=== PATIENT | male | born 1965 | race Native Hawaiian/Other Pacific Islander ===

== ENCOUNTER 2020-05-18 08:42 | Emergency (ER) | payer MEDICAID, MEDICARE ==
[2020-05-18] MEDS ORDERED: hydrALAZINE 20 MG/1 ML INJ IV ONE (08:45)
--- NOTE | 2020-05-18 09:10 | Cat Scan Report ---
CT head without contrast INDICATION : Code stroke. TECHNIQUE: Axial imaging performed from the skull apex through the skull base without the use of con trast. All CT scans at this location are performed using CT dose reduction for ALARA by means of aut omated exposure control. COMPARISON: None FINDINGS: Parenchyma: No acute intracranial hemorrhage or parenchymal abnormality. Ventricles: Ventricles are normal in size and appear symmetric. Soft tissues: Soft tissues including the orbits appear normal. Bones: No acute osseous abnormality. Sinuses: Minimal thickening right maxillary sinus. IMPRESSION: No acute abnormality. CODE STROKE: Time of Communication (COMBINATION WINDOW INSTALLER/CDT): 8 8 2:00 AM Licensed Practitioner Receiving Report: Dr. Kimble. Signer Name: Carlos Tinoco MD Signed: 05/18/2020 9:05 AM Workstation Name: [id number]
[2020-05-18] MEDS ORDERED: METOCLOPRAMIDE 10 MG/2 ML INJ IV ONE (09:28)
[2020-05-18] MEDS ORDERED: BUTALB/ACETAMINOPHEN/CAFFEINE TAB PO ONE (09:28)
[2020-05-18] MEDS ORDERED: diphenhydrAMINE 50 MG/ML VIAL IV ONE (09:28)
--- NOTE | 2020-05-18 09:29 | XRay Report ---
CHEST 1 VIEW 05/18/2020 8:55 AM INDICATION / CLINICAL INFORMATION: code stroke. COMPARISON: Report from radiograph dated 12/29/2016. Images are not available for comparison. FINDINGS: SUPPORT DEVICES: None. HEART / MEDIASTINUM: No significant abnormality. LUNGS / PLEURA: No significant pulmonary or pleural abnormality. No pneumothorax. ADDITIONAL FINDINGS: No significant additional findings. IMPRESSION: 1. No acute findings. Signer Name: Jw Jama MD Signed: 05/18/2020 9:25 AM Workstation Name: [id number]
[2020-05-18 09:38] LABS: Hematocrit 46.1 % (35.5-45.6); Hemoglobin 15.3 gm/dl (11.8-15.2); Mean Corpuscular HGB Conc 33 % (32-34); Mean Corpuscular Volume 93 fl (84-94); Red Blood Count 4.95 M/mm3 (3.65-5.03); Red Cell Distribution Width 13.8 % (13.2-15.2)
[2020-05-18 09:54] LABS: Partial Thromboplastin Time 31.8 Sec. (24.2-36.6); Thrombin Time 16.6 Sec. (15.1-19.6)
[2020-05-18] MEDS ORDERED: ONDANSETRON 4 MG/2 ML INJ IV ONE (09:55)
[2020-05-18] MEDS ORDERED: BUTORPHANOL 2 MG/1 ML INJ IV NR (09:56)
[2020-05-18 09:59] LABS: Creatine Kinase MB 5.1 ng/mL (0.0-4.0); Platelet Count 253 K/mm3 (140-440)
--- NOTE | 2020-05-18 10:00 | History and Physical Report ---
Medications and Allergies Allergies Allergy/AdvReac Type Severity Reaction Status Date / Time aspirin Allergy Itching Verified 07/03/13 18:43 Iodinated Contrast Media Allergy Shortness Verified 03/11/13 17:05 [Iodinated Contrast Media - of Breath IV Dye] ketorolac tromethamine Allergy Itching Verified 03/11/13 17:05 [From Toradol] NSAIDS (Non-Steroidal Allergy Itching Verified 03/11/13 17:05 Anti-Inflamma prochlorperazine edisylate Allergy Itching Verified 03/11/13 17:05 [From Compazine] prochlorperazine maleate Allergy Itching Verified 03/11/13 17:05 [From Compazine] Sulfa (Sulfonamide Allergy Itching Verified 03/11/13 17:05 Antibiotics) sumatriptan [From Imitrex] Allergy Itching Verified 03/11/13 17:05 sumatriptan succinate Allergy Itching Verified 03/11/13 17:05 [From Imitrex] tramadol HCl [From Ultram] Allergy Itching Verified 03/11/13 17:05 Home Medications Medication Instructions Recorded Confirmed Last Taken Type ALBUTEROL NEB's [Proventil 0.083% 2.5 mg IH TID PRN 07/03/13 12/31/16 12/30/16 History NEBS] cloNIDine [Catapres] 0.3 mg PO BID #60 tablet 07/07/13 12/31/16 12/30/16 Rx lisinopriL [Zestril TAB] 20 mg PO BID #60 tablet 07/07/13 12/31/16 12/30/16 Rx LORazepam [Ativan] 1 mg PO BID 12/31/16 12/31/16 12/30/16 History Mirtazapine [Remeron] 30 mg PO QHS 12/31/16 12/31/16 12/30/16 History Morphine ER [Ms Contin ER] 30 mg PO BID 12/31/16 12/31/16 12/30/16 History Oxycodone HCl [Roxicodone] 1 tab PO Q4HR 12/31/16 12/31/16 12/30/16 22:00 History 1 tab Active Meds: Active Medications Ondansetron HCl (Ondansetron 4 Mg/2 Ml Inj) 4 mg IV ONCE ONE Stop: 05/18/20 09:56 Assessment and Plan [facility] Consult Note # Demographics Consult Type: Acute Stroke Level 2 (4.5-24 hrs) Patient Location: Emergency Room First Name: Smooth Last Name: Rohan Date of : 1965 Age: 55 Gender: Male Time of Initial Page ( Time): 05/18/2020, 08:47 Time of Return Call ( Time): 05/18/2020, 08:47 # HPI History: 55 yo man with headache starting yesterday then onset of slurred speech and right-sided weakness startting at 03:45. History of migraines in the past associated neurological symptoms of weakness. Current headache feels like his migraines. Last Known Normal: I have collected independent history specific to time last normal or last known well. We have collaborated with the provider and at this time, we have the most current timeline with the information that is available., [id number] Duration: constant # Scores Time of exam and NIHSS (): 05/18/2020, 09:12 Level of Consciousness 1a: [0] = Alert; keenly responsive LOC Questions 1b: [0] = Answers both questions correctly LOC Commands 1c: [0] = Performs both tasks correctly Best Gaze 2: [0] = Normal Visual 3: [0] = No visual loss Facial Palsy 4: [1] = Minor paralysis Motor Arm Left 5a: [0] = No drift Motor Arm Right 5b: [1] = Drift Motor Leg Left 6a: [0] = No drift Motor Leg Right 6b: [1] = Drift Limb Ataxia 7: [0] = Absent Sensory 8: [1] = [id number] sensory loss Best Language 9: [0] = No aphasia Dysarthria 10: [1] = [id number]-oddtrugu dysarthria Extinction and Inattention 11: [0] = No abnormality NIHSS Total: 5 # Exam SBP: 176 DBP: 108 # PMH-- Past Medical History: hypertension, Migraines, Asthma, Chronic pain Medications: Morphine, Lisinopril, Clonidine, Remeron, Roxicodone Allergies: IV contrast, NSAIDS, Toradol, Compazine, IV dye (hives) # Data Time Head CT personally read by me ( Time): 05/18/2020, 08:[address]: no bleed # Assessment Impression: Migraine (Complex), Stroke Mimic, Headache associated with right sided weakness and numbness. He has a history of complex migraines associated with neurological symptoms. Differential includes complex migraine vs stroke/TIA. Given timing of symptom onset he is not a candidate for IV tpa. Due to contrast allergy we were unable to get a stat CTA head and neck. # Plan Thrombolytic/Intervention: NOT IV Thrombolytic or IA Intervention Thrombolytic Exclusion: > 4.5 hours Intraarterial Exclusion: other (see below), Unable to get CTA Thrombolytic/Intraarterial Exclusion: IV thrombolytic and IA intervention considered but not recommended as this patient's symptoms are not clinically consistent with an assumed diagnosis of stroke Imaging: (urgency: STAT in ED): MRI Brain without contrast Therapy/Evaluation: NPO until swallow evaluation Other: I have discussed my recommendations with the referring provider Additional Recommendations: Treat migraine headache MRI brain to further rule out stroke Disposition: admit
[2020-05-18 10:01] LABS: Alanine Aminotransferase 13 units/L (7-56); Albumin 3.9 g/dL (3.9-5); BUN/Creatinine Ratio 12; Blood Urea Nitrogen 12 mg/dL (9-20); Calcium 10.2 mg/dL (8.4-10.2); Hemolysis Index 59
--- NOTE | 2020-05-18 10:08 | Emergency Department Report ---
ED General Adult HPI - General Chief complaint: Neuro Symptoms/Deficit Stated complaint: POSSIBLE STROKE Time Seen by Provider: 05/18/20 08:45 Source: patient Mode of arrival: Stretcher Limitations: No Limitations - History of Present Illness Initial comments: The patient presents to the emergency department via EMS as a code stroke. Patient states around 3 AM this morning he began to have slurred speech and difficulty using his right side. Patient also complains of a headache states he has a history of migraines and this feels very similar to prior migraines. Patient denies any chest pain, shortness breath, or headache. Patient does complain of chronic back pain and states he has not had morphine in 2 days due to being in [facility]. Not the worst headache of his life -: Sudden Location: head Severity scale (0 -10): 8 Quality: other (Throbbing) Consistency: constant Improves with: none Worsens with: none Associated Symptoms: denies other symptoms Treatments Prior to Arrival: none - Related Data Home Medications Medication Instructions Recorded Confirmed Last Taken ALBUTEROL NEB's [Proventil 0.083% 2.5 mg IH TID PRN 07/03/13 12/31/16 12/30/16 NEBS] LORazepam [Ativan] 1 mg PO BID 12/31/16 12/31/16 12/30/16 Mirtazapine [Remeron] 30 mg PO QHS 12/31/16 12/31/16 12/30/16 Morphine ER [Ms Contin ER] 30 mg PO BID 12/31/16 12/31/16 12/30/16 Oxycodone HCl [Roxicodone] 1 tab PO Q4HR 12/31/16 12/31/16 12/30/16 22:00 1 tab Previous Rx's Medication Instructions Recorded Last Taken Type cloNIDine [Catapres] 0.3 mg PO BID #60 tablet 07/07/13 12/30/16 Rx lisinopriL [Zestril TAB] 20 mg PO BID #60 tablet 07/07/13 12/30/16 Rx Allergies Allergy/AdvReac Type Severity Reaction Status Date / Time aspirin Allergy Itching Verified 07/03/13 18:43 Iodinated Contrast Media Allergy Shortness Verified 03/11/13 17:05 [Iodinated Contrast Media - of Breath IV Dye] ketorolac tromethamine Allergy Itching Verified 03/11/13 17:05 [From Toradol] NSAIDS (Non-Steroidal Allergy Itching Verified 03/11/13 17:05 Anti-Inflamma prochlorperazine edisylate Allergy Itching Verified 03/11/13 17:05 [From Compazine] prochlorperazine maleate Allergy Itching Verified 03/11/13 17:05 [From Compazine] Sulfa (Sulfonamide Allergy Itching Verified 03/11/13 17:05 Antibiotics) sumatriptan [From Imitrex] Allergy Itching Verified 03/11/13 17:05 sumatriptan succinate Allergy Itching Verified 03/11/13 17:05 [From Imitrex] tramadol HCl [From Ultram] Allergy Itching Verified 03/11/13 17:05 ED Review of Systems ROS: Stated complaint: POSSIBLE STROKE Other details as noted in HPI Comment: All other systems reviewed and negative Constitutional: denies: chills, fever Eyes: denies: eye pain, eye discharge, vision change ENT: denies: ear pain, throat pain Respiratory: denies: cough, shortness of breath, wheezing Cardiovascular: denies: chest pain, palpitations Endocrine: no symptoms reported Gastrointestinal: denies: abdominal pain, nausea, diarrhea Genitourinary: denies: urgency, dysuria Musculoskeletal: denies: back pain, joint swelling, arthralgia Skin: denies: rash, lesions Neurological: weakness (right side). denies: headache, paresthesias Psychiatric: denies: anxiety, depression Hematological/Lymphatic: denies: easy bleeding, easy bruising ED Past Medical Hx - Past Medical History Hx Hypertension: Yes Hx CVA: Yes (05/2015) Hx Congestive Heart Failure: No Hx Diabetes: No Hx Headaches / Migraines: Yes (cluster headaches) Hx Asthma: Yes Hx COPD: No Additional medical history: hx complex migraines with stroke type symptoms. chronic back pain. left side weakness from previous cva. Narcotic dependence - Surgical History Additional Surgical History: left hip replacement, pin in right shoulder and back surgery, testiclular surgery, abdominal surgery - Social History Smoking Status: Former Smoker - Medications Home Medications: Home Medications Medication Instructions Recorded Confirmed Last Taken Type ALBUTEROL NEB's [Proventil 0.083% 2.5 mg IH TID PRN 07/03/13 12/31/16 12/30/16 History NEBS] cloNIDine [Catapres] 0.3 mg PO BID #60 tablet 07/07/13 12/31/16 12/30/16 Rx lisinopriL [Zestril TAB] 20 mg PO BID #60 tablet 07/07/13 12/31/16 12/30/16 Rx LORazepam [Ativan] 1 mg PO BID 12/31/16 12/31/16 12/30/16 History Mirtazapine [Remeron] 30 mg PO QHS 12/31/16 12/31/16 12/30/16 History Morphine ER [Ms Contin ER] 30 mg PO BID 12/31/16 12/31/16 12/30/16 History Oxycodone HCl [Roxicodone] 1 tab PO Q4HR 12/31/16 12/31/16 12/30/16 22:00 History 1 tab ED Physical Exam - General Limitations: No Limitations General appearance: alert, in no apparent distress - Head Head exam: Present: atraumatic, normocephalic - Eye Eye exam: Present: normal appearance, PERRL, EOMI - ENT ENT exam: Present: mucous membranes moist - Neck Neck exam: Present: normal inspection - Respiratory Respiratory exam: Present: normal lung sounds bilaterally. Absent: respiratory distress - Cardiovascular Cardiovascular Exam: Present: regular rate, normal rhythm. Absent: systolic murmur, diastolic murmur, rubs, gallop - GI/Abdominal GI/Abdominal exam: Present: soft, normal bowel sounds. Absent: distended, tenderness - Rectal Rectal exam: Present: deferred - Extremities Exam Extremities exam: Present: normal inspection - Back Exam Back exam: Present: normal inspection - Neurological Exam Neurological exam: Present: alert, oriented X3, CN II-XII intact - Psychiatric Psychiatric exam: Present: normal affect, normal mood - Skin Skin exam: Present: warm, dry, intact, normal color. Absent: rash ED Course Vital Signs 05/18/20 09:45 Temperature 98.6 F Pulse Rate 89 Respiratory 18 Rate Blood Pressure 176/108 [Right] O2 Sat by Pulse 99 Oximetry ED Medical Decision Making - Lab Data Result diagrams: 05/18/20 09:30 05/18/20 09:30 Lab Results 05/18/20 05/18/20 05/18/20 Range/Units 09:30 09:30 09:30 WBC 15.4 H (4.5-11.0) K/mm3 RBC 4.95 (3.65-5.03) M/mm3 Hgb 15.3 H (11.8-15.2) gm/dl Hct 46.1 H (35.5-45.6) % MCV 93 (84-94) fl MCH 31 (28-32) pg MCHC 33 (32-34) % RDW 13.8 (13.2-15.2) % Plt Count 253 (140-440) K/mm3 Seg Neutrophils % Event Planner PT 13.1 (12.2-14.9) Sec. INR 1.00 (0.87-1.13) APTT 31.8 (24.2-36.6) Sec. Thrombin Time 16.6 (15.1-19.6) Sec. Sodium 133 L (137-145) mmol/L Potassium 4.9 (3.6-5.0) mmol/L Chloride 97.9 L (98-107) mmol/L Carbon Dioxide 23 (22-30) mmol/L Anion Gap 17 mmol/L BUN 12 (9-20) mg/dL Creatinine 1.0 (0.8-1.3) mg/dL Estimated GFR > 60 ml/min BUN/Creatinine Ratio 12 % Glucose 105 H (75-100) mg/dL Calcium 10.2 (8.4-10.2) mg/dL Total Bilirubin 0.90 (0.1-1.2) mg/dL AST 32 (5-40) units/L ALT 13 (7-56) units/L Alkaline Phosphatase 93 (35-129) units/L Total Creatine Kinase 714 H (55-170) units/L CK-MB (CK-2) 5.1 H (0.0-4.0) ng/mL CK-MB (CK-2) Rel Index 0.7 (0-4) Troponin T < 0.010 (0.00-0.029) ng/mL Total Protein 8.7 H (6.3-8.2) g/dL Albumin 3.9 (3.9-5) g/dL Albumin/Globulin Ratio 0.8 % Urine Color (Yellow) Urine Turbidity (Clear) Urine pH (5.0-7.0) Ur Specific [place] (1.003-1.030) Urine Protein (Negative) mg/dL Urine Glucose (UA) (Negative) mg/dL Urine Ketones (Negative) mg/dL Urine Blood (Negative) Urine Nitrite (Negative) Urine Bilirubin (Negative) Urine Urobilinogen (<2.0) mg/dL Ur Leukocyte Esterase (Negative) Urine WBC (Auto) (0.0-6.0) /HPF Urine RBC (Auto) (0.0-6.0) /HPF U Epithel Cells (Auto) (0-13.0) /HPF Urine Bacteria (Auto) (Negative) /HPF Urine Mucus /HPF Ur Barbiturates Screen Ur Phencyclidine Scrn Ur Amphetamines Screen U Benzodiazepines Scrn Urine Cocaine Screen 05/18/20 05/18/20 Range/Units Unknown Unknown WBC (4.5-11.0) K/mm3 RBC (3.65-5.03) M/mm3 Hgb (11.8-15.2) gm/dl Hct (35.5-45.6) % MCV (84-94) fl MCH (28-32) pg MCHC (32-34) % RDW (13.2-15.2) % Plt Count (140-440) K/mm3 Seg Neutrophils % PT (12.2-14.9) Sec. INR (0.87-1.13) APTT (24.2-36.6) Sec. Thrombin Time (15.1-19.6) Sec. Sodium (137-145) mmol/L Potassium (3.6-5.0) mmol/L Chloride (98-107) mmol/L Carbon Dioxide (22-30) mmol/L Anion Gap mmol/L BUN (9-20) mg/dL Creatinine (0.8-1.3) mg/dL Estimated GFR ml/min BUN/Creatinine Ratio % Glucose (75-100) mg/dL Calcium (8.4-10.2) mg/dL Total Bilirubin (0.1-1.2) mg/dL AST (5-40) units/L ALT (7-56) units/L Alkaline Phosphatase (35-129) units/L Total Creatine Kinase (55-170) units/L CK-MB (CK-2) (0.0-4.0) ng/mL CK-MB (CK-2) Rel Index (0-4) Troponin T (0.00-0.029) ng/mL Total Protein (6.3-8.2) g/dL Albumin (3.9-5) g/dL Albumin/Globulin Ratio % Urine Color Yellow (Yellow) Urine Turbidity Clear (Clear) Urine pH 6.0 (5.0-7.0) Ur Specific [place] 1.025 (1.003-1.030) Urine Protein 30 mg/dl (Negative) mg/dL Urine Glucose (UA) Neg (Negative) mg/dL Urine Ketones 20 (Negative) mg/dL Urine Blood Neg (Negative) Urine Nitrite Neg (Negative) Urine Bilirubin Neg (Negative) Urine Urobilinogen 2.0 (<2.0) mg/dL Ur Leukocyte Esterase Neg (Negative) Urine WBC (Auto) 1.0 (0.0-6.0) /HPF Urine RBC (Auto) 12.0 (0.0-6.0) /HPF U Epithel Cells (Auto) < 1.0 (0-13.0) /HPF Urine Bacteria (Auto) 1+ (Negative) /HPF Urine Mucus 1+ /HPF Ur Barbiturates Screen Negative Ur Phencyclidine Scrn Negative Ur Amphetamines Screen Negative U Benzodiazepines Scrn Negative Urine Cocaine Screen Negative - Radiology Data Radiology results: report reviewed - Medical Decision Making At 11 AM was called to the patient's room because he stated his symptoms had completely resolved. The patient was put on his close and is walking around the room and in the hallway. Patient has no facial droop. Patient wants to leave AGAINST MEDICAL ADVICE. Just prior to me being called to the room the patient had been released from custody by police. I discussed with patient that due to his initial NIH score upon his presentation this concerned that he could be having a stroke especially with his blood pressure being high. I discussed with patient the need for him to stay in the hospital for further work-up because his symptoms could lead to or permanent disability but the patient stated he is getting the heck out of here. Patient signed AMA forms and once again I Splane to the patient the seriousness of this condition but the patient refused to stay. Critical care attestation.: If time is entered above; I have spent that time in minutes in the direct care of this critically ill patient, excluding procedure time. ED Disposition Clinical Impression: Stroke-like symptoms Disposition: DC-07 LEFT AGAINST MED ADVICE Is pt being admited?: No Does the pt Need Aspirin: No Condition: Stable Referrals: PRIMARY CARE, [Primary Care Provider] - 3-5 Days Forms: AMA Form - Assessment Assessment Interval: Baseline - Level of Consciousness 1a. Level of Consciousness: alert/keenly responsive - LOC Questions 1b. LOC Questions: answers both correctly - LOC Command 1c. LOC Commands: performs tasks correctly - Best Gaze 2. Best Gaze: normal - Visual 3. Visual: no visual loss - Facial Palsy 4. Facial Palsy: minor paralysis - Motor Arm 5a. Motor Arm Left: no drift 5b. Motor Arm Right: drift - Motor Leg 6a. Motor Leg Left: no drift 6b. Motor Leg Right: drift - Limb Ataxia 7. Limb Ataxia: absent - Sensory 8. Sensory: mild/moderate sensory loss - Best Language 9. Best Language: no aphasia - Dysarthria 10. Dysarthria: mild/moderate dysarthria - Extinction and Inattention 11. Extinction/Inattention: no abnormality - Scoring Total Score: 5 Stroke Severity: Moderate Stroke
[2020-05-18 10:20] VITALS: BP 176/108
[2020-05-18 10:51] LABS: Bacteria,Urine 1+ /HPF (Negative); Bilirubin,Urine NEG (Negative); Blood,Urine NEG (Negative); Color,Urine Yellow (Yellow); Mucus,Urine 1+ /HPF
[2020-05-18 10:53] LABS: Amphetamine Screen,Urine Negative; Benzodiazepines Screen,Urine Negative; Cocaine Screen,Urine Negative
[2020-05-18 13:19] LABS: Myelocytes # (Manual) 0.2 K/mm3; Total Cells Counted 100
[2020-05-18 13:20] LABS: Anisocytosis 1+; Platelet Estimate Consistent w Auto
[2020-05-18 13:55] LABS: Cannabinoid Screen,Urine PRESUMPTIVE NEGATIVE; Methadone Screen,Urine PRESUMPTIVE NEGATIVE
[2020-05-18 14:37] LABS: Opiate Screen,Urine PRESUMPTIVE POSITIVE
== END 2020-05-18 11:11 | disposition left against medical advice (07) ==
LOC: ED 08:42
DX: I63.9 Cerebral infarction, unspecified (principal); R47.81 Slurred speech; I10 Essential (primary) hypertension; G43.909 Migraine, unspecified, not intractable, without status migrainosus; J45.909 Unspecified asthma, uncomplicated; Z98.890 Other specified postprocedural states; Z79.899 Other long term (current) drug therapy; Z87.891 Personal history of nicotine dependence; Z88.8 Allergy status to other drugs, medicaments and biological substances
CPT/HCPCS: 36415; 70450; 71045; 80053; 80307; 81001; 82550; 82553; 82962; 84484; 85007; 85025; 85610; 85670; 85730; 96374; 96375; 99285; J0360; J0595; J1200; J2405; J2765